=== PATIENT | female | born 1965 | race Caucasian/White ===

== ENCOUNTER 2020-12-14 17:31 | Emergency (ER) | payer OTHER ==
[~2020-12-14] VITALS: Ht 157.5 cm; Wt 59.0 kg
[~2020-12-14 17:31] MED LIST: AMLODIPINE BESY10 MG PO; HCTZ25 MG PO; HYDRALAZINE25 MG PO; LEVAQUIN750 MG PO; LISINOPRIL 10MG10 MG PO; LOPRESSOR25 MG PO; NEXIUM20 MG PO; WOMEN'S DAILY1 EACH PO
[2020-12-14 17:57] LABS: BASOPHIL 1.1 % (0-2); HCT 41.5 % (37.0-47.0); HGB 14.1 g/dl (12.5-16.0); LYMPHOCYTE 33.2 % (15-48); MCH 29.3 pg (25.0-31.0); MCV 86.3 fL (78.0-100.0); MONOCYTE 7.2 % (0-12); MPV 10.3 fL (6.0-9.5); NEUTROPHIL 49.4 % (41-80); NRBC 0; PLT 306 K/uL (150-400); RBC 4.81 M/uL (4.20-5.40); RDW 12.3 % (11.5-14.0); WBC 7.2 K/uL (4.0-10.5)
[2020-12-14 18:01] LABS: INR 1.04 (0.9-1.2); PTT 24.7 SECONDS (24.4-34.7)
[2020-12-14 18:41] LABS: ALBUMIN 4.2 g/dL (3.4-5.0); BILIRUBIN - TOTAL 0.6 mg/dL (0.2-1.0); BUN/CREAT RATIO (CALC) 23.1 RATIO; CREATININE 1.04 mg/dL (0.51-0.95); GLOBULIN (CALCULATION) 2.9 g/dL; POTASSIUM 4.3 mmol/L (3.5-5.1); TOTAL PROTEIN 7.1 g/dL (6.4-8.2)
== END 2020-12-14 19:40 | disposition other institution (70) ==
LOC: FER 17:31
PROVIDERS: Emergency Medicine
DX: I63.9 Cerebral infarction, unspecified (principal); N17.9 Acute kidney failure, unspecified; R29.703 NIHSS score 3; I10 Essential (primary) hypertension; Z91.040 Latex allergy status
CPT/HCPCS: 36415; 70450; 71045; 80053; 80061; 82550; 84484; 85025; 85610; 85730; 93005; J2997; J3490